=== PATIENT | male | born 1965 | race African-American/Black ===

== ENCOUNTER 2018-06-25 14:34 | Emergency (ER) | payer MEDICAID ==
[~2018-06-25] VITALS: Ht 188 cm; Wt 75.0 kg
[2018-06-25 17:10] VITALS: BP 100/68
[2018-06-25 19:33] LABS: CLARITY URINE CLEAR (CLEAR); COLOR URINE YELLOW (YELLOW); KETONES URINE TRACE (NEGATIVE); LEUKOCYTE ESTERASE URINE NEGATIVE (NEGATIVE); NITRITE URINE NEGATIVE (NEGATIVE); OCCULT BLOOD URINE NEGATIVE (NEGATIVE); PH URINE 6.5 (4.5-8.0); PROTEIN URINE NEGATIVE (NEGATIVE); SPECIFIC GRAVITY URINE 1.032 (1.005-1.030)
== END 2018-06-26 07:09 | disposition left against medical advice (07) ==
LOC: ER 14:34
DX: R10.32 Left lower quadrant pain (principal); R19.7 Diarrhea, unspecified
CPT/HCPCS: 99283